=== PATIENT | male | born 1985 | race Caucasian/White ===

== ENCOUNTER 2024-05-09 06:12 | Outpatient (REF) | payer OTHER, SELFPAY ==
--- NOTE | ~2024-05-09 | US_ITS ---
EXAMINATION: US SCROTUM CLINICAL INFORMATION: Left scrotal pain.. No history of trauma or injury reported by the patient. COMPARISON: None available. TECHNIQUE: A sonogram of the scrotum was performed assessing soto-scale appearance and color Doppler flow. Spectral Doppler analysis of the arterial and venous flow were performed in the testes bilaterally. FINDINGS: RIGHT: Right testicle measures 3.8 x 2.1 x 3.2 cm, volume 13.4 mL. No focal testicular parenchymal lesions are visualized. Spectral Doppler analysis of the arterial and venous flow is normal in the right testis. 3 mm cyst in the right epididymal head. 4 mm cyst in the epididymal head. LEFT: Left testicle measures 4.3 x 2.1 x 2.9 cm, volume 13.7 mL. No focal testicular parenchymal lesions are visualized. Spectral Doppler analysis of the arterial and venous flow is normal in the left testis. The left epididymis appears normal. There is a small varicocele measuring 1.7 mm neutral and 2.5 mm Valsalva. There is a possible left inguinal hernia which is not well evaluated. US/US scrotum IMPRESSION: Left varicocele. Possible left inguinal hernia that is not well evaluated.
== END 2024-05-09 06:13 | disposition home or self-care (01) ==
LOC: HO.UMASIMG 06:12
PROVIDERS: Visit Provider Nurse Practitioner
DX: M25.50 Pain in unspecified joint (principal); N50.82 Scrotal pain
CPT/HCPCS: 76870